=== PATIENT | female | born 1955 | race Caucasian/White ===

== ENCOUNTER 2017-01-27 08:08 | Emergency (ER) | payer OTHER ==
--- NOTE | 2017-01-27 08:13 | EDPHY ---
H & P Time Seen by Provider: 01/27/17 08:12 Constitutional: Initial Vital Signs Temperature (C) 36.2 C 01/27/17 08:11 Heart Rate 69 01/27/17 08:11 Respiratory Rate 14 01/27/17 08:11 Blood Pressure 198/89 H 01/27/17 08:11 O2 Sat (%) 99 01/27/17 08:11 Allergies/Adverse Reactions: codeine Allergy (Verified 01/27/17 08:18) neomycin Allergy (Verified 01/27/17 08:18) polymyxin B Allergy (Verified 01/27/17 08:18) Aluminum Stone Dye Allergy (Uncoded 01/27/17 08:18) hypromellose containing meds Allergy (Uncoded 01/27/17 08:18) Home Medications: Medication Instructions Recorded Lisinopril [Zestril 40 mg (*)] 40 mg PO DAILY 01/27/17 Ofloxacin 0.3% [Ocuflox 0.3%] 1 drops OP QID #1 opht.btl 01/27/17 Medical Decision Making ED Course/Re-evaluation: CHIEF COMPLAINT: Left eye pain HISTORY OF PRESENT ILLNESS: The patient is a 61 y/o female arriving with her family member complaining of acute onset left eye pain last night worsening this morning. Last night after removing her soft contact her eye "felt scratchy, " but was only mildly painful. Upon waking this morning it felt much more painful and in the last hour it is significantly painful. She has blurred vision in her left eye. She is confident she removed the entire contact as she checked the integrity of the contact in her lens case this morning. She denies fever or any system symptoms. She does not have significant eye history other than minor cataract in right eye. REVIEW OF SYSTEMS: A 10 point review of systems was performed and is negative with the exception of the elements mentioned in the history of present illness. PHYSICAL EXAM: HR, BP, O2 Sat, RR. Temp noted General Appearance: Alert, well hydrated, appropriate, and non-toxic appearing. Visual Acuity: Noted from Nurse's notes. Pupils: [PERRLA, EOMI, no nystagmus, no trauma, no injection.] Lids: [No edema or swelling] Skin: [No proptosis, no periorbital erythema or swelling, no vesicles] Conjunctivae: [left eye has minor injected, not icteric, no discharge] Cornea: [Exam with slit lamp shows slightly denuded cornea of left eye overlying pupil. Anterior chamber: [Normal, no hyphema or hypopyon] Posterior Chamber: [No papilledema or hemorrhages.] Past medical history: Cataract right eye, soft contacts Past surgical history: denies Family history: noncontributory Social history: family member at bedside DIAGNOSTICS/PROCEDURES/CRITICAL CARE TIME: Slit lamp exam. DIFFERENTIAL DIAGNOSIS: The differential diagnosis for the patient's eye pain included but was not limited to denuded cornea from contact lens removal, corneal abrasion, eye infection, eye foreign body. MEDICAL DECISION MAKING: This is a healthy 61 y/o female complaining of acute onset and worsening left eye pain since removing her contact lens last night. She reports blurry vision in the left eye this morning. Proparacaine was applied for pain. On slit lamp exam, she has a denuded cornea in the center of her eye overlying the pupil. She will be discharged with Ocuflox drops and referral to ophthalmology. She declines pain medication. Return precautions given. She is comfortable with this plan. - Data Points Medications Given: Discontinued Medications Fluorescein Sodium ([id number]) 1 mg OP EDNOW ONE Stop: 01/27/17 08:35 Last Admin: 01/27/17 08:52 Dose: 1 mg Proparacaine HCl (Alcaine 0.5%) 1 drops OP EDNOW ONE Stop: 01/27/17 08:34 Last Admin: 01/27/17 08:53 Dose: 1 drop Departure - Departure Disposition: Home, Routine, Self-Care Clinical Impression: Corneal abrasion due to contact lens Qualifiers: Laterality: left Qualified Code(s): H18.822 - Corneal disorder due to contact lens, left eye Condition: Good Instructions: Corneal Abrasion (ED) Additional Instructions: 1. Use Ocuflox drops as prescribed. Talk with the pharmacist to determine if the binder you have an allergy to is in the drops prior to using them. Generic is fine. 2. Use Tylenol or ibuprofen as directed on the packaging as needed for pain for the next few days. 3. Follow up with Dr. Clifton, bulb tester in the next few days or earlier for worsening symptoms. 4. [facility] is a good option if you need an fuller brush man in the area. Referrals: Bryan Conrad MD [Primary Care Provider] - As per Instructions Nic Clifton MD [Medical Doctor] - As per Instructions Prescriptions: Ofloxacin 0.3% [Ocuflox 0.3%] 1 drops OP QID #1 opht.btl Report Scribed for: Sergo Fuentes Report Scribed by: Shanthi Heard Date of Report: 01/27/17 Time of Report: 08:51
[2017-01-27 08:16] VITALS: PULSE 69
[2017-01-27] MEDS ORDERED: FLUORESCEIN SODIUM 1 MG STRIP OP ONE ×2 (08:16→08:34)
[2017-01-27] MEDS ORDERED: PROPARACAINE 0.5% 15 ML OPHT DROP ONE (08:16)
[2017-01-27] MEDS ORDERED: PROPARACAINE 0.5% 15 ML OPHT DROP OP ONE (08:33)
[2017-01-27 09:06] VITALS: BP 155/89; RESP 18; TEMP 98.4; O2SAT 96
== END 2017-01-27 09:05 | disposition home or self-care (01) ==
DX: H18.822 Corneal disorder due to contact lens, left eye (principal)